=== PATIENT | male | born 1995 | race Caucasian/White ===

== ENCOUNTER 2016-11-21 00:49 | Emergency (ER) | payer BC, OTHER ==
[~2016-11-21] VITALS: Ht 182.9 cm; Wt 76.6 kg
--- NOTE | 2016-11-21 00:57 | EMERGENCY ROOM VISIT NOTE ---
History Report prepared by Scribe: Celine Coffey Under the Supervision of: Dr. Perri Kramer D.O. First contact with patient: 00:49 Chief Complaint: ALCOHOL OVERDOSE Stated Complaint: ALCOHOL OVERDOSE History of Present Illness The patient is a 21 year old male with no documented history who presents to the Emergency Room with complaints of episode of an alcohol overdose occurring just prior to arrival. Per EMS, the patient was found passed out behind a house on [facility] and had one episode of vomiting. History limited secondary to intoxication. Source of History: patient History Limited By: intoxication Onset: just prior to arrival Timing: other (episode) Associated Symptoms: + vomiting Review of Systems ROS limited secondary to intoxication. Past Medical & Surgical limited secondary to intoxication. Family History limited secondary to intoxication. Social History Occupation Status: [employer] student limited secondary to intoxication. Current/Historical Medications No Active Prescriptions or Reported Meds Allergies Coded Allergies: No Known Allergies (Unverified , 12/18/15) Physical Exam Vital Signs Date Time Temp Pulse Resp B/P (MAP) Pulse Ox O2 Delivery O2 Flow Rate FiO2 11/21/16 04:33 97 18 110/62 97 11/21/16 04:11 88 11/21/16 04:05 36.5 90 18 103/64 98 Room Air 11/21/16 03:01 92 18 99/47 99 Room Air 11/21/16 02:16 35.7 11/21/16 02:01 80 23 122/63 98 Room Air 11/21/16 01:30 78 20 126/71 100 Room Air 11/21/16 01:13 74 11/21/16 01:09 34.9 71 24 120/67 100 Room Air 11/21/16 01:03 100 Room Air Physical Exam General: The patient woke up unhappy about being put in a gown. Smells of alcohol. HEENT: Head - normocephalic and atraumatic Pupils are 3 mm and reactive to light. Extraocular eye muscles are intact, and sclera are anicteric. Nose - moist nasal mucosa without discharge. Mouth - moist buccal mucosa. Oropharynx is nonerythematous and there is no tonsillar exudate or edema noted. Neck: Supple; no JVD, nuchal rigidity, cervical lymphadenopathy. Heart: Tachycardic. There is a normal S1 and S2 with no murmurs, clicks, or gallops appreciated. Lungs: Clear to auscultation bilaterally with no wheezes, rales, or rhonchi. Abdomen: Soft, completely nontender, nondistended, with good bowel sounds. There are no palpable pulsatile masses or hepatosplenomegaly. There is no guarding, rigidity, or rebound noted. Extremities: No evidence of cyanosis, clubbing, or edema. There are easily palpable peripheral pulses. Skin: warm and dry with good turgor and no rashes. Medical Decision & Procedures Laboratory Results 11/21/16 01:10 Test 11/21/16 01:10 Anion Gap 12.0 mmol/L (3-11) Est Creatinine Clear Calc Drug Dose 116.1 ml/min Estimated GFR () 111.4 Estimated GFR (Non- 96.1 BUN/Creatinine Ratio 14.3 (10-20) Calcium Level 8.7 mg/dl (8.5-10.1) Ethyl Alcohol mg/dL 193.0 mg/dl (0-3) Laboratory results per my review. ED Course 0052: The patient was evaluated in room A9B. A complete history and physical exam was performed. The patient was placed in the prone position to avoid aspiration. He was observed on the education teacher and pulse oximeter. Labs were drawn as above. The patient was noted to be hypothermic and the Mnidy hugger was placed. 0230: Mindy hugger in place, temperature is up 1 degree, vitals stable, patient is asleep. 0400: The patient wakes up easily. The nurses will recheck patient so he will can call for friend to pick him up. 0423: Upon reevaluation, the patient is resting comfortably. He verbalized agreement of the treatment plan. The patient was discharged home. Medical Decision The patient is a 21 year old male with no documented history who presents to the Emergency Room with complaints of episode of an alcohol overdose occurring just prior to arrival. Differential diagnosis includes head injury, alcohol overdose, drug intoxication and hypoglycemia. Lab results show alcohol 193, potassium 3.2, and glucose 199. The patient presents to the emergency department after consuming too much alcohol. He was found to be hypothermic and was actively rewarmed. He was noted to have a high blood sugar and a low potassium. Once the patient was more awake and sober, I reviewed all of the laboratory values with him. Avastin to follow-up with student health services for fasting blood sugar and take foods high in potassium. Have encouraged him to avoid such excessive alcohol use in the future. Medication Reconcilliation Current Medication List: was personally reviewed by me Impression Primary Impression: Alcohol overdose Additional Impressions: Hypothermia Hyperglycemia Hypokalemia Scribe Attestation The scribe's documentation has been prepared under my direction and personally reviewed by me in its entirety. I confirm that the note above accurately reflects all work, treatment, procedures, and medical decision making performed by me. Departure Information Dispostion Home / Self-Care Prescriptions No Active Prescriptions or Reported Meds Forms HOME CARE DOCUMENTATION FORM, IMPORTANT VISIT INFORMATION Patient Instructions ED Overdose Alcohol, Hyperglycemia, Hypokalemia [facility] [employer] [facility] and Alcohol Related Visits, My [facility] Additional Instructions Rest take a bland diet. Use tylenol for headache Avoid such excessive alcohol in the future Take foods high in potassium Follow up at [facility] to have a fasting blood sugar checked Problem Qualifiers Primary Impression: Alcohol overdose Encounter type: initial encounter Injury intent: accidental or unintentional Qualified Codes: T51.91XA - Toxic effect of unspecified alcohol , accidental (unintentional), initial encounter Additional Impressions: Hypothermia Encounter type: initial encounter Qualified Codes: T68.XXXA - Hypothermia, initial encounter
[2016-11-21 01:03] VITALS: O2SAT 100
[2016-11-21 01:09] VITALS: Ht 182.9 cm; Wt 76.6 kg
[2016-11-21 01:39] LABS: BUN/CREATININE RATIO 14.3 (10-20); CALCIUM 8.7 mg/dl (8.5-10.1); CREATININE 1.1 mg/dl (0.60-1.40); POTASSIUM 3.2 mmol/L (3.5-5.1)
[2016-11-21 04:05] VITALS: TEMP 36.5
[2016-11-21 04:33] VITALS: BP 110/62; PULSE 97; O2SAT 97
== END 2016-11-21 04:33 | disposition home or self-care (01) ==
LOC: C.EDA 00:49 → EDBD 00:49 → C.EDA 04:33
DX: T51.91XA Toxic effect of unspecified alcohol, accidental (unintentional), initial encounter (principal); T68.XXXA Hypothermia, initial encounter; R73.9 Hyperglycemia, unspecified; E87.6 Hypokalemia; X58.XXXA Exposure to other specified factors, initial encounter

== ENCOUNTER 2017-07-02 11:52 | Emergency (ER) | payer OTHER ==
[~2017-07-02] VITALS: Ht 190.5 cm; Wt 71.3 kg
[2017-07-02] VITALS (10 sets, daily range): BP systolic 124–155; BP diastolic 79–99; PULSE 82–93; TEMP 36.6; O2SAT 95–100; Ht 190.5 cm; Wt 71.3 kg
[2017-07-02] MEDS ORDERED: ONDANSETRON INJ 2 MG/ML 2 ML VIAL ONE (12:02)
[2017-07-02] MEDS ORDERED: FENTANYL CITRATE INJ 50 MCG/1 ML 2 ML VIAL ONE (12:02)
[2017-07-02] MEDS ORDERED: KETAMINE HCL INJ 50 MG/ML 10 ML VIAL ONE (12:08)
[2017-07-02] MEDS ORDERED: PROPOFOL IV EMULSION 10 MG/ML 20 ML VIAL IV ONE (12:08)
[2017-07-02] MEDS ORDERED: ONDANSETRON INJ 2 MG/ML 2 ML VIAL IV STA (12:23)
[2017-07-02] MEDS ORDERED: PROPOFOL IV EMULSION 10 MG/ML 20 ML VIAL IV STA (12:23)
[2017-07-02] MEDS ORDERED: KETAMINE HCL INJ 50 MG/ML 10 ML VIAL IV STA (12:23)
[2017-07-02] MEDS ORDERED: FENTANYL CITRATE INJ 50 MCG/1 ML 2 ML VIAL IV STA (12:23)
--- NOTE | 2017-07-02 12:36 | DIAGNOSTIC IMAGING REPORT ---
L ANKLE MIN 3 VIEWS ROUTINE CLINICAL HISTORY: 22 years-old Male presenting with L ankle deformity. TECHNIQUE: Frontal, oblique, and lateral views of the left ankle were obtained. COMPARISON: None. FINDINGS: Obliquely oriented mildly comminuted fracture of the distal fibular metadiaphysis above the level of the distal tibiofibular articulation. There is one half shaft width lateral displacement of the distal fracture fragment. A small butterfly fracture fragment is evident along the lateral aspect at the level of the fracture plane. Diffuse soft tissue swelling noted. One half shaft width posterior displacement of the distal fracture fragment also noted. Widening of the medial clear space, which measures 7 mm. No posterior malleolus are fracture. IMPRESSION: Webb C (stage III or pronation exorotation) injury with medial ligamentous rupture, presumed anterior syndesmotic injury, and fibular fracture above the level of the syndesmosis. No posterior malleolar fracture. Electronically signed by: Richard Smith M.D. 07/02/2017 12:35 PM Dictated Date/Time: 07/02/2017 12:29 PM
[2017-07-02] MEDS ORDERED: OXYC1TAB3 PO (12:59)
--- NOTE | 2017-07-02 13:40 | EMERGENCY ROOM VISIT NOTE ---
Pre-Mod Sedation Assessment General Date of Moderate Sedation: Jul 02, 2017. Vital Signs: Vital Signs Past 12 Hours Date Time Temp Pulse Resp B/P (MAP) Pulse Ox O2 Delivery O2 Flow Rate FiO2 07/02/17 13:35 87 16 147/89 100 07/02/17 13:05 87 16 147/89 100 Room Air 07/02/17 12:57 74 100 07/02/17 12:56 143/79 07/02/17 12:52 78 98 07/02/17 12:51 140/80 07/02/17 12:50 82 140/80 100 Room Air 07/02/17 12:47 79 100 07/02/17 12:46 138/99 07/02/17 12:42 84 100 07/02/17 12:41 142/101 07/02/17 12:37 82 19 100 07/02/17 12:35 87 155/99 100 Room Air 07/02/17 12:32 83 12 100 07/02/17 12:31 137/79 07/02/17 12:30 87 16 137/79 100 Room Air 07/02/17 12:30 93 137/79 95 Nasal Cannula 2.0 07/02/17 12:27 84 17 100 07/02/17 12:26 146/94 07/02/17 12:25 84 146/94 99 Nasal Cannula 2.0 07/02/17 12:22 88 12 100 07/02/17 12:21 151/82 07/02/17 12:20 89 151/82 100 Nasal Cannula 2.0 07/02/17 12:17 70 9 99 07/02/17 12:16 124/97 07/02/17 12:15 85 124/97 96 Nasal Cannula 2.0 07/02/17 12:11 87 16 133/83 100 Nasal Cannula 2.0 07/02/17 12:11 91 07/02/17 12:11 133/83 07/02/17 11:57 36.6 98 20 139/90 100 Room Air Pre-Sedation Airway Assessment Oral Cavity: WNL Short Thick Neck: No Hx of Sleep Apnea: No Smoking Status: Never Smoker Notes The planned sedation has been discussed with the patient and consent obtained. I have identified the patient, determined the appropriateness of sedation and have assessed the patient immediately prior to the procedure. All medicine(s) and interventions are by my order.
--- NOTE | 2017-07-02 13:55 | Post Sedation Assessment ---
Post Sedation Assessment General Date of Sedation Jul 02, 2017. Vital Signs: Vital Signs Past 12 Hours Date Time Temp Pulse Resp B/P (MAP) Pulse Ox O2 Delivery O2 Flow Rate FiO2 07/02/17 13:35 87 16 147/89 100 07/02/17 13:05 87 16 147/89 100 Room Air 07/02/17 12:57 74 100 07/02/17 12:56 143/79 07/02/17 12:52 78 98 07/02/17 12:51 140/80 07/02/17 12:50 82 140/80 100 Room Air 07/02/17 12:47 79 100 07/02/17 12:46 138/99 07/02/17 12:42 84 100 07/02/17 12:41 142/101 07/02/17 12:37 82 19 100 07/02/17 12:35 87 155/99 100 Room Air 07/02/17 12:32 83 12 100 07/02/17 12:31 137/79 07/02/17 12:30 87 16 137/79 100 Room Air 07/02/17 12:30 93 137/79 95 Nasal Cannula 2.0 07/02/17 12:27 84 17 100 07/02/17 12:26 146/94 07/02/17 12:25 84 146/94 99 Nasal Cannula 2.0 07/02/17 12:22 88 12 100 07/02/17 12:21 151/82 07/02/17 12:20 89 151/82 100 Nasal Cannula 2.0 07/02/17 12:17 70 9 99 07/02/17 12:16 124/97 07/02/17 12:15 85 124/97 96 Nasal Cannula 2.0 07/02/17 12:11 87 16 133/83 100 Nasal Cannula 2.0 07/02/17 12:11 91 07/02/17 12:11 133/83 07/02/17 11:57 36.6 98 20 139/90 100 Room Air Post Procedure Recovery Score Activity: (2) Moves 4 extremities * Respiration: (2) Deep breath/cough Circulation: (2) +/-20% PreAnes Value Consciousness: (2) Fully Awake Oxygen Saturation: (2) > 92% On Room Air Post Anesthesia Score: 10 Discharge Sedation Level of Care: Phase I Post Sedation Plan On clinical assessment, the patient appears to have tolerated the sedation without complications. Patient is recovering as anticipated. Patient will continue to be monitored by nursing and may be discharged when sedation discharge criteria are met per below protocol. Upon Completions of procedure and additional 15 minutes continue every 5 minute vital signs and the P.A.R. score; then discharge to a Phase I or Fast Track to Phase II per the following guidelines: * Discharge Patient to appropriate Phase II area if PAR is 8 or greater or return to pre- procedure baseline. The post - procedure orders will be as directed. * If PAR score is less than 8 or not return to pre-procedure baseline then patient will follow Phase I monitoring till PAR is reached for Phase II. The Phase I may be done in procedure room or may call to secure a Phase I area. * If naloxone or flumazenil are used for reversal, hold in Phase I for an additional 60 -120 minutes before discharge to Phase II. Please call the Sedation Physician to re-evaluate and complete post-note for discharge to Phase II area. Do NOT discharge from procedure sedation or Phase 1 until post- sedation evaluation note is complete by procedure /sedation MD Sedation Discharge Instructions to be given to the patient at discharge to home.
--- NOTE | 2017-07-02 13:59 | EMERGENCY ROOM VISIT NOTE ---
ED Visit Note First contact with patient: 12:06 Procedural Sedation Indication ankle dislocation. Total time: 20 minutes. Written consent was obtained after the risks and benefits were explained to the pt, including, but not limited to aspiration, allergic reaction, breathing difficulties, cardiac complications, vomiting, pain, event recall, bleeding, and /or infection. Pre-sedation examination and paperwork completed. The patient was on 100% oxygen via NRB prior to the procedure. Continous end tidal CO2 monitoring, pulse oximetry, and cardiac monitoring were utilized. Suction, airway equipment, medications, respiratory equipment, and appropriate personnel were prepared prior to the initiation of the procedure. A time out was taken. Sedation was achieved utilizing 30 mg of ketamine and 30 mg Propofol x7. After I observed the patient had reached the appropriate level of sedation the main procedure was performed without complication. Sedation was discontinued and the monitoring continued. The patient recovered quickly from the effects of the medication without complication or adverse event.
--- NOTE | 2017-07-02 21:06 | EMERGENCY ROOM VISIT NOTE ---
History First contact with patient: 12:00 Chief Complaint: ANKLE PAIN Stated Complaint: L-ANKLE PAIN History of Present Illness The patient is a 22 year old male who presents to the Emergency Room via ambulance for an obvious left ankle deformity. The patient reports that he twisted the ankle playing extreme Frisbee this afternoon. He believes that someone fell against his leg. The patient was transported here via S ambulance with an air splint in place. The patient rates his discomfort a 10 out of 10. He denies any other injuries during play, including head injury, neck pain, back pain, upper extremity or right lower extremity pain. Review of Systems HEENT: Denies dizziness, visual problems, hearing loss, tinnitus. Denies difficulty swallowing or oral lesions. PULMONARY: Denies cough, shortness of breath, sputum production or hemoptysis. CARDIOVASCULAR: Denies chest pain, palpitations, dyspnea on exertion, orthopnea or peripheral edema. GASTROINTESTINAL: Denies diarrhea, constipation, nausea, vomiting, or abdominal pain. GENITOURINARY: Denies dysuria, frequency, urgency or nocturia. NEUROLOGIC: Denies history of epilepsy, CVA, TIA or chronic headaches. MUSCULOSKELETAL: See HPI. SKIN: Denies rashes or lesions. PSYCHIATRIC: Denies history of depression or mental illness. ENDOCRINE: Denies history of diabetes or thyroid disorders. Past Medical/Surgical History Medical Problems: (1) Cannabis Abuse With Intoxication, Unspecified (2) Tobacco Use Surgical Problems: (1) No history of previous surgery Family History Patient reports no known family medical history. Social History Smoking Status: Current Some Day Smoker Alcohol Use: occasionally Drug Use: marijuana, other Marital Status: single Housing Status: lives with roommate Occupation Status: [employer] student Current/Historical Medications Scheduled PRN Oxycodone Ir (Roxicodone Ir), 1-2 TAB PO Q4H PRN for Pain Physical Exam Vital Signs Date Time Temp Pulse Resp B/P (MAP) Pulse Ox O2 Delivery O2 Flow Rate FiO2 07/02/17 13:35 87 16 147/89 100 07/02/17 13:05 87 16 147/89 100 Room Air 07/02/17 12:57 74 100 07/02/17 12:56 143/79 07/02/17 12:52 78 98 07/02/17 12:51 140/80 07/02/17 12:50 82 140/80 100 Room Air 07/02/17 12:47 79 100 07/02/17 12:46 138/99 07/02/17 12:42 84 100 07/02/17 12:41 142/101 07/02/17 12:37 82 19 100 07/02/17 12:35 87 155/99 100 Room Air 07/02/17 12:32 83 12 100 07/02/17 12:31 137/79 07/02/17 12:30 87 16 137/79 100 Room Air 07/02/17 12:30 93 137/79 95 Nasal Cannula 2.0 07/02/17 12:27 84 17 100 07/02/17 12:26 146/94 07/02/17 12:25 84 146/94 99 Nasal Cannula 2.0 07/02/17 12:22 88 12 100 07/02/17 12:21 151/82 07/02/17 12:20 89 151/82 100 Nasal Cannula 2.0 07/02/17 12:17 70 9 99 07/02/17 12:16 124/97 07/02/17 12:15 85 124/97 96 Nasal Cannula 2.0 07/02/17 12:11 87 16 133/83 100 Nasal Cannula 2.0 07/02/17 12:11 91 07/02/17 12:11 133/83 07/02/17 11:57 36.6 98 20 139/90 100 Room Air Physical Exam CONSTITUTIONAL: Healthy and well nourished. Alert and oriented X 3 with positive affect. The patient appears in severe discomfort. HEENT: Normocephalic, atraumatic. Pupils equal, round and reactive. NECK: Full active range of motion without discomfort. RESPIRATORY: Clear to auscultation bilaterally with no wheezing, crackles, rhonchi or stridor. CARDIOVASCULAR: Regular rate and rhythm with no murmurs, rubs or gallops. GASTROINTESTINAL: Bowel sounds present in all quadrants. Soft and nontender to palpation. MUSCULOSKELETAL: Examination of the left lower extremity shows an obvious ankle dislocation with notable tenting of the skin from the tibiotalar joint. The foot is externally rotated. There are no open injuries. The patient has very sluggish capillary refill of approximately 5 seconds. Patient has no tenderness to palpation of the mid to proximal leg region, or about the knee. INTEGUMENTARY: No rash or other significant dermatologic conditions noted. NEUROLOGIC: The patient reports poor sensation to the left foot and toes. Medical Decision & Procedures ER Provider Diagnostic Interpretation: Post reduction x-rays of the left ankle shows a distal fibula fracture and medial ankle mortise widening. Radiologist report is as follows: L ANKLE MIN 3 VIEWS ROUTINE CLINICAL HISTORY: 22 years-old Male presenting with L ankle deformity. TECHNIQUE: Frontal, oblique, and lateral views of the left ankle were obtained. COMPARISON: None. FINDINGS: Obliquely oriented mildly comminuted fracture of the distal fibular metadiaphysis above the level of the distal tibiofibular articulation. There is one half shaft width lateral displacement of the distal fracture fragment. A small butterfly fracture fragment is evident along the lateral aspect at the level of the fracture plane. Diffuse soft tissue swelling noted. One half shaft width posterior displacement of the distal fracture fragment also noted. Widening of the medial clear space, which measures 7 mm. No posterior malleolus are fracture. IMPRESSION: Webb C (stage III or pronation exorotation) injury with medial ligamentous rupture, presumed anterior syndesmotic injury, and fibular fracture above the level of the syndesmosis. No posterior malleolar fracture. Medications Administered Medications (Trade) Dose Ordered Sig/Dior Route Start Time Stop Time Status Last Admin Dose Admin Fentanyl Citrate (Fentanyl Inj) 100 mcg STK-MED ONCE .ROUTE 07/02/17 12:02 07/02/17 12:03 DC 07/02/17 12:54 100 MCG Ondansetron HCl (Zofran Inj) 4 mg STK-MED ONCE .ROUTE 07/02/17 12:02 07/02/17 12:03 DC 07/02/17 12:55 4 MG ED Course Patient history and physical exam were performed. Nurse's notes were reviewed. Vital signs were reviewed and were normal. The patient is in severe discomfort. Examination shows an externally rotated foot with obvious ankle dislocation. No open wounds were noted. IV access was immediately established. The patient was administered IV fentanyl and Zofran for pain. I also immediately contacted Dr. Vegas, ED attending physician, for evaluation and possible conscious sedation to perform a reduction procedure. The patient was evaluated by Dr. Vegas who performed a conscious sedation. Please see his dictation for further details. After adequate sedation, I performed an ankle reduction. Post reduction x-rays shows a distal fibula fracture with medial mortise widening. I also assisted with a posterior and ankle stirrup Ortho-Glass splint placement. Neurovascular check after splint placement and reduction were both normal. The patient recovered from conscious sedation without adverse events. The patient was also fitted with crutches. He was instructed to follow-up with [facility] for further reevaluation and management. The patient was provided a prescription for OxyIR as needed for pain. The patient was happy with plan of care, voiced understanding of all discharge instructions, and did not appear in any significant distress or discomfort at the time of discharge. Medical Decision Because of a neurovascular compromise of the left foot secondary to an ankle fracture dislocation, immediate reduction under conscious sedation was performed to reduce risk for any further neurovascular compromise or injury. The patient did not experience any adverse events from his conscious sedation, and recovered well. [facility] Drug Monitoring Program Search Results: patient reviewed within database, no issues identified Medication Reconcilliation Current Medication List: was personally reviewed by me Blood Pressure Screening Patient's blood pressure: Normal blood pressure Impression Primary Impression: Closed fracture dislocation of left ankle Critical Care I have personally spent greater than 30 minutes of critical care time in the direct management of this patient. This includes bedside care, interpretation of diagnostic studies, and testing, discussion with consultants, patient, and family members, and other required patient management activities. This 30 minutes is in excess of all separately billable procedures. Departure Information Dispostion Home / Self-Care Condition GOOD Prescriptions Oxycodone Ir (Roxicodone Ir) 5 Mg Tab 1-2 TAB PO Q4H Y for Pain, #15 TAB For Initial Treatment Prov: Freedom Archuleta PA 07/02/17 Referrals No Doctor, Assigned Richard Chester M.D. Forms Adult Anesthesia/Sedation, HOME CARE DOCUMENTATION FORM, IMPORTANT VISIT INFORMATION Patient Instructions My [facility], ED Sedation Procedural Discon Additional Instructions Intermittently apply ice and elevate ankle for swelling and pain. No weight on splint -use crutches. Ibuprofen 800 mg and/or Tylenol 1000 mg every 8 hours. You may also alternate these medications for more effective pain relief: Ibuprofen --4 HRS--> Tylenol --4 HRS--> ibuprofen --4 HRS--> Tylenol .... OxyIR if needed for worse pain. Do not drink alcohol or drive while taking OxyIR. Follow-up with [facility] (Dr. Chester) for further reevaluation and management -call tomorrow morning for an appointment. Problem Qualifiers Primary Impression: Closed fracture dislocation of left ankle Encounter type: initial encounter Qualified Codes: S82.892A - Other fracture of left lower leg, initial encounter for closed fracture
== END 2017-07-02 13:36 | disposition home or self-care (01) ==
LOC: EDBD 11:52 → C.EDC 11:55
DX: S82.892A Other fracture of left lower leg, initial encounter for closed fracture (principal); X50.9XXA Other and unspecified overexertion or strenuous movements or postures, initial encounter; F17.200 Nicotine dependence, unspecified, uncomplicated; F12.90 Cannabis use, unspecified, uncomplicated